=== PATIENT | male | born 1985 | race Caucasian/White ===

== ENCOUNTER 2018-06-03 11:46 | Observation (INO) | payer OTHER, BC ==
--- NOTE | 2018-06-03 12:54 | XR ---
EXAMINATION TYPE: XR chest 2V DATE OF EXAM: 06/03/2018 COMPARISON: Prior chest x-ray 06/03/2017 HISTORY: Chest pain TECHNIQUE: Frontal and lateral views of the chest are obtained. FINDINGS: There is no focal air space opacity, pleural effusion, or pneumothorax seen. The cardiac silhouette size is within normal limits. The osseous structures are intact. IMPRESSION: No acute cardiopulmonary process.
[2018-06-03 13:08] LABS: Basophils # (A) 0.1 k/uL (0-0.2); Basophils % (A) 1 %; Eosinophils # (A) 0.5 k/uL (0-0.7); Eosinophils % (A) 4 %; HGB 15.3 gm/dL (13.0-17.5); Lymphocytes # (A) 3.3 k/uL (1.0-4.8); Lymphocytes % (A) 30 %; MCH 30.2 pg (25.0-35.0); MCHC 33.9 g/dL (31.0-37.0); MCV 89.2 fL (80.0-100.0); Mean Platelet Volume 7.3; Monocytes # (A) 0.4 k/uL (0-1.0); Monocytes % (A) 3 %; Neutrophils # (A) 6.8 k/uL (1.3-7.7); Neutrophils % (A) 61 %; Platelet Count 277 k/uL (150-450); RBC 5.04 m/uL (4.30-5.90); RDW 13.1 % (11.5-15.5); WBC 11.1 k/uL (3.8-10.6)
[2018-06-03 13:16] LABS: ALT 107 U/L (21-72); AST 57 U/L (17-59); Albumin 4.7 g/dL (3.5-5.0); Alkaline Phosphatase 93 U/L (38-126); Anion Gap 10 mmol/L; Blood Urea Nitrogen 15 mg/dL (9-20); Calcium 9.5 mg/dL (8.4-10.2); Carbon Dioxide 26 mmol/L (22-30); Chloride 105 mmol/L (98-107); Glucose 133 mg/dL (74-99); Magnesium 1.9 mg/dL (1.6-2.3); Potassium 3.9 mmol/L (3.5-5.1); Sodium 141 mmol/L (137-145); Total Bilirubin 0.7 mg/dL (0.2-1.3); Total Protein 7.6 g/dL (6.3-8.2)
[2018-06-03 13:23] LABS: INR 0.9 (<1.2); Partial Thromboplastin Time 23.6 sec (22.0-30.0); Prothrombin Time 9.9 sec (9.0-12.0)
[2018-06-03 13:37] LABS: Creatine Kinase 212 U/L (55-170)
[2018-06-03 13:50] LABS: Creatine Kinase MB 0.6 ng/mL (0.0-2.4); Troponin I <0.012 ng/mL (0.000-0.034)
[2018-06-03] MEDS ORDERED: HEPARIN SODIUM,PORCINE 5,000 UNIT/ML 1 ML VIAL IV ONE (14:55)
[2018-06-03] MEDS ORDERED: HEPARIN SODIUM,PORCINE 5,000 UNIT/ML 1 ML VIAL IV PRN (14:55)
[2018-06-03] MEDS ORDERED: NITROGLYCERIN SL TABS 0.4 MG TAB SUBLINGUAL PRN (14:56)
[2018-06-03] MEDS ORDERED: HEPARIN SOD,PORK IN 0.45% NACL 25,000 UNIT in 0.45% NACL 1 250ML.BAG IV SCH (15:00)
--- NOTE | 2018-06-03 15:48 | ED ---
Chest Pain HPI - General Chief Complaint: Chest Pain Stated Complaint: Abnormal EKG Source: patient Mode of arrival: wheelchair Limitations: no limitations - History of Present Illness Initial Comments: The patient was seen and assessed by me please see the PA report for all the details patient was admitted for a cardiac workup due to chest pain. - Related Data Previous Rx's Medication Instructions Recorded Atorvastatin [Lipitor] 20 mg PO DAILY #30 tab 06/04/18 Fenofibrate [Lofibra] 160 mg PO DAILY #30 tab 06/04/18 Allergies Allergy/AdvReac Type Severity Reaction Status Date / Time No Known Allergies Allergy Verified 06/03/18 14:00 Review of Systems ROS Statement: Those systems with pertinent positive or pertinent negative responses have been documented in the HPI. ROS Other: All systems not noted in ROS Statement are negative. Past Medical History Past Medical History: No Reported History History of Any Multi-Drug Resistant Organisms: None Reported Past Surgical History: No Surgical Hx Reported Past Psychological History: No Psychological Hx Reported Smoking Status: Current every day smoker Past Alcohol Use History: Daily Past Drug Use History: None Reported - Past Family History Mother History Unknown: Yes Father Family Medical History: Liver Disease Additional Family Medical History / Comment(s): alcoholic General Exam Limitations: no limitations Course Vital Signs 06/03/18 06/03/18 06/03/18 12:03 16:30 17:32 Temperature 98.3 F Pulse Rate 89 78 77 Respiratory 18 16 14 Rate Blood Pressure 146/88 130/78 130/65 O2 Sat by Pulse 97 97 98 Oximetry 06/03/18 18:44 Temperature Pulse Rate 81 Respiratory 18 Rate Blood Pressure 123/77 O2 Sat by Pulse 96 Oximetry - Reevaluation(s) Reevaluation #1: 06/03/18 15:44 PA supervision: I proceeded [id number] evaluation the patient patient had several episodes of retrosternal chest pain sharp in nature that lasted initially for a period time and initially get somewhat short in duration. He's had several episodes in the emergency department since he arrived. This workup was negative he does have a family history of a grandfather who of a myocardial infarction at the age of 36 he is a smoker. We did discuss smoking cessation the entire discussion lasted 3.1 minutes. I did discuss the case with Dr. Wells. Patient will be admitted with cardiology consultation Chest Pain MDM - MDM Please see the PA report for all of the details. Disposition Clinical Impression: ACS (acute coronary syndrome), Chest pain Disposition: ADMITTED IP TO THIS HOSP Condition: Fair
--- NOTE | 2018-06-03 15:52 | ED ---
General Adult HPI - General Chief complaint: Chest Pain Stated complaint: Abnormal EKG Source: patient, RN notes reviewed, old records reviewed Mode of arrival: wheelchair Limitations: no limitations - History of Present Illness Initial comments: 32-year-old male patient with no pertinent past medical history presents to ED with 3 episodes of chest pain. Patient reports that this morning at approx 8 am while he was driving to work he experienced an episode of substernal chest pain that radiated to his right breast last approximate 8 minutes. Patient reports that he had to pull around the side of the road, extremes of dizziness, lightheadedness at the time. Patient states that episodes of chest pain he called off of work and presented at walk in clinic for evaluation. Patient reports that during presentation he had another episode of substernal chest pain radiated to his right breast. Patient describes the pain as stabbing sharp. Patient states that this lasted a shorter duration time, approximate 5 minutes. During evaluation at walk in clinic patient reports that they found some EKG changes and recommended to present to the ED. While in the ED triage room patient reports that he had a more minor chest pain of his substernal region arranges right breast again, also stabbing, lasted approximately 3 minutes. Patient denies any other symptoms. Patient denies shortness of breath , abdominal pain, nausea vomiting diarrhea, diaphoresis. Patient denies syncope. Patient has changes in vision. Patient states that he does smoke cigarettes and had a grandfather that of a HI at 36 years of age. Systemic: Pt denies fatigue, myalgia, fever/chills, rash. Pt denies weakness, night sweats, weight loss. Neuro: Pt denies headache, visual disturbances, syncope or pre-syncope. HEENT: Pt denies ocular discharge or irritation, otalgia, rhinorrhea, pharyngitis or notable lymphadenopathy. Cardiopulmonary: Pt denies SOB, dyspnea on exertion. Abdominal/GI: Pt denies abdominal pain, n/v/d. : Pt denies dysuria, burning w/ urination, frequency/urgency. Denies new onset urinary or bowel incontinence. MSK: Pt denies myalgia, loss of strength or function in extremities. Neuro: Pt denies new onset weakness, paresthesias. - Related Data Home Medications Medication Instructions Recorded Confirmed No Known Home Medications 06/03/18 06/03/18 Allergies Allergy/AdvReac Type Severity Reaction Status Date / Time No Known Allergies Allergy Verified 06/03/18 14:00 Review of Systems ROS Statement: Those systems with pertinent positive or pertinent negative responses have been documented in the HPI. ROS Other: All systems not noted in ROS Statement are negative. Past Medical History Past Medical History: No Reported History History of Any Multi-Drug Resistant Organisms: None Reported Past Surgical History: No Surgical Hx Reported Past Psychological History: No Psychological Hx Reported Smoking Status: Current every day smoker Past Alcohol Use History: Daily Past Drug Use History: None Reported - Past Family History Mother History Unknown: Yes Father Family Medical History: Liver Disease Additional Family Medical History / Comment(s): alcoholic General Exam - General Exam Comments Initial Comments: Constitutional: NAD, AOX3, Pt has pleasant affect. HEENT: NC/AT, trachea midline, neck supple, no lymphadenopathy. Posterior pharynx non erythematous, without exudates. External ears appear normal, without discharge. Mucous membranes moist. Eyes PERRLA, EOM intact. There is no scleral icterus. No pallor noted. Cardiopulmonary: RRR, no murmurs, rubs or gallops, no JVD noted. Lungs CTAB in anterior and posterior buitrago. No peripheral edema. Chest pain non reproducible on palpation. Abdominal exam: Abdomen soft and non-distended. Abdomen non-tender to palpation in all 4 quadrants. Bowel sounds active in LLQ. No hepatosplenomegaly. No ecchymosis Neuro: CN II-XII grossly intact. No nuchal rigidity. MSK: No posterior calf tenderness bilaterally, homans sign negative bilaterally. Posterior tibialis and radial pulse +2 bilaterally. Sensation intact in upper and lower extremities. Full active ROM in upper and lower extremities, 5/5 strength. Limitations: no limitations Course Vital Signs 06/03/18 06/03/18 06/03/18 12:03 16:30 17:32 Temperature 98.3 F Pulse Rate 89 78 77 Respiratory 18 16 14 Rate Blood Pressure 146/88 130/78 130/65 O2 Sat by Pulse 97 97 98 Oximetry 06/03/18 18:44 Temperature Pulse Rate 81 Respiratory 18 Rate Blood Pressure 123/77 O2 Sat by Pulse 96 Oximetry Medical Decision Making - Medical Decision Making 32-year-old male patient presents to ED with 3 episodes of substernal stabbing chest pain. Patient denies any pertinent past medical history. Vital signs stable. Physical exam did not display any acute pathology, chest pain reproducible upon palpation. EKG displayed inverted T waves in lead 2 before he 5 V6. Laboratory non-impressive, CBC, CMP. Coagulation studies within normal limits. Mg2+ wnl. Troponin negative. CK-MD wnl. CK slightly elevated at 212. Patient to be admitted to telemetry for continued evaluation, cardiac consult. Patient heparinized with low dose heparin. Patient diagnosed with unstable angina, started on aspirin, Nitropaste, serial tropes. Pt admitted to Dr. Wells, consulted Dr. Yepez. Pt discussed and seen by Dr. Rosales. - Lab Data Result diagrams: 06/03/18 12:38 06/03/18 12:38 Lab Results 06/03/18 06/03/18 06/03/18 Range/Units 12:38 12:38 12:38 WBC 11.1 H (3.8-10.6) k/uL RBC 5.04 (4.30-5.90) m/uL Hgb 15.3 (13.0-17.5) gm/dL Hct 45.0 (39.0-53.0) % MCV 89.2 (80.0-100.0) fL MCH 30.2 (25.0-35.0) pg MCHC 33.9 (31.0-37.0) g/dL RDW 13.1 (11.5-15.5) % Plt Count 277 (150-450) k/uL Neutrophils % 61 % Lymphocytes % 30 % Monocytes % 3 % Eosinophils % 4 % Basophils % 1 % Neutrophils # 6.8 (1.3-7.7) k/uL Lymphocytes # 3.3 (1.0-4.8) k/uL Monocytes # 0.4 (0-1.0) k/uL Eosinophils # 0.5 (0-0.7) k/uL Basophils # 0.1 (0-0.2) k/uL PT (9.0-12.0) sec INR (<1.2) APTT (22.0-30.0) sec Sodium 141 (137-145) mmol/L Potassium 3.9 (3.5-5.1) mmol/L Chloride 105 (98-107) mmol/L Carbon Dioxide 26 (22-30) mmol/L Anion Gap 10 mmol/L BUN 15 (9-20) mg/dL Creatinine 1.15 (0.66-1.25) mg/dL Est GFR (CKD-EPI)AfAm >90 (>60 ml/min/1.73 sqM) Est GFR (CKD-EPI)NonAf 86 (>60 ml/min/1.73 sqM) Glucose 133 H (74-99) mg/dL Calcium 9.5 (8.4-10.2) mg/dL Magnesium 1.9 (1.6-2.3) mg/dL Total Bilirubin 0.7 (0.2-1.3) mg/dL AST 57 (17-59) U/L ALT 107 H (21-72) U/L Alkaline Phosphatase 93 (38-126) U/L Total Creatine Kinase 212 H (55-170) U/L CK-MB (CK-2) 0.6 (0.0-2.4) ng/mL CK-MB (CK-2) Rel Index 0.3 Troponin I <0.012 (0.000-0.034) ng/mL Total Protein 7.6 (6.3-8.2) g/dL Albumin 4.7 (3.5-5.0) g/dL 06/03/18 Range/Units 12:38 WBC (3.8-10.6) k/uL RBC (4.30-5.90) m/uL Hgb (13.0-17.5) gm/dL Hct (39.0-53.0) % MCV (80.0-100.0) fL MCH (25.0-35.0) pg MCHC (31.0-37.0) g/dL RDW (11.5-15.5) % Plt Count (150-450) k/uL Neutrophils % % Lymphocytes % % Monocytes % % Eosinophils % % Basophils % % Neutrophils # (1.3-7.7) k/uL Lymphocytes # (1.0-4.8) k/uL Monocytes # (0-1.0) k/uL Eosinophils # (0-0.7) k/uL Basophils # (0-0.2) k/uL PT 9.9 (9.0-12.0) sec INR 0.9 (<1.2) APTT 23.6 (22.0-30.0) sec Sodium (137-145) mmol/L Potassium (3.5-5.1) mmol/L Chloride (98-107) mmol/L Carbon Dioxide (22-30) mmol/L Anion Gap mmol/L BUN (9-20) mg/dL Creatinine (0.66-1.25) mg/dL Est GFR (CKD-EPI)AfAm (>60 ml/min/1.73 sqM) Est GFR (CKD-EPI)NonAf (>60 ml/min/1.73 sqM) Glucose (74-99) mg/dL Calcium (8.4-10.2) mg/dL Magnesium (1.6-2.3) mg/dL Total Bilirubin (0.2-1.3) mg/dL AST (17-59) U/L ALT (21-72) U/L Alkaline Phosphatase (38-126) U/L Total Creatine Kinase (55-170) U/L CK-MB (CK-2) (0.0-2.4) ng/mL CK-MB (CK-2) Rel Index Troponin I (0.000-0.034) ng/mL Total Protein (6.3-8.2) g/dL Albumin (3.5-5.0) g/dL - EKG Data -: EKG Interpreted by Me (and dr rosales) EKG Comments: Ventricular rate 80, IL interval 166, QRS 108, QTC is QTC 360 since 417. Normal sinus rhythm. T wave abnormality. Inverted T waves noted on lead 2, V4 V5 and V6. Disposition Clinical Impression: ACS (acute coronary syndrome) Disposition: ADMITTED IP TO THIS HOSP Condition: Fair Is patient prescribed a controlled substance at d/c from ED?: No
[2018-06-03] MEDS: NITROGLYCERIN OINT 1 INCH/GM PACKET TOPICAL SCH ×2 (16:26→21:24)
--- NOTE | 2018-06-03 18:55 | P.HPIM ---
History of Present Illness 32-year-old pleasant the male without any significant past medical history except for smoking history came in with complaints of chest pressure which started today while she was driving lasted for about 10 minutes while he was driving pressure-like sensation along with some lightheadedness denied any diaphoresis denied any shortness of breath patient has to stop, while he started driving again it recurred again because of which the patient was advised to come to ER. Patient has family history of coronary artery disease in grandfather at age 37. Patient has some nonspecific ST-T wave changes on the EKG troponins are negative patient is admitted to rule out acute coronary syndromes and unstable angina. Chest pain is nonpleuritic not associated with food. Denied any cough chest x-ray did not show pneumonia. Review of Systems REVIEW OF SYSTEMS: CONSTITUTIONAL: No fever, no malaise, no fatigue. HEENT: No recent visual problems or hearing problems. Denied any sore throat. CARDIOVASCULAR: No orthopnea, PND, no palpitations, no syncope. PULMONARY: No shortness of breath, no cough, no hemoptysis. GASTROINTESTINAL: No diarrhea, no nausea, no vomiting, no abdominal pain. NEUROLOGICAL: No headaches, no weakness, no numbness. HEMATOLOGICAL: Denies any bleeding or petechiae. GENITOURINARY: Denies any burning micturition, frequency, or urgency. MUSCULOSKELETAL/RHEUMATOLOGICAL: Denies any joint pain, swelling, or any muscle pain. ENDOCRINE: Denies any polyuria or polydipsia. The rest of the 14-point review of systems is negative. Past Medical History Past Medical History: No Reported History History of Any Multi-Drug Resistant Organisms: None Reported Past Surgical History: No Surgical Hx Reported Past Psychological History: No Psychological Hx Reported Smoking Status: Current every day smoker Past Alcohol Use History: Daily Past Drug Use History: None Reported Medications and Allergies Home Medications Medication Instructions Recorded Confirmed Type No Known Home Medications 06/03/18 06/03/18 History Allergies Allergy/AdvReac Type Severity Reaction Status Date / Time No Known Allergies Allergy Verified 06/03/18 14:00 Physical Exam Vitals: Vital Signs Temp Pulse Resp BP Pulse Ox 06/03/18 18:44 81 18 123/77 96 06/03/18 17:32 77 14 130/65 98 06/03/18 16:30 78 16 130/78 97 06/03/18 12:03 98.3 F 89 18 146/88 97 Intake and Output 06/03/18 06/03/18 06/03/18 06:59 14:59 22:59 Other: Weight 92.533 kg PHYSICAL EXAMINATION: GENERAL: The patient is alert and oriented x3, not in any acute distress. Well developed, well nourished. HEENT: Pupils are round and equally reacting to light. EOMI. No scleral icterus. No conjunctival pallor. Normocephalic, atraumatic. No pharyngeal erythema. No thyromegaly. CARDIOVASCULAR: S1 and S2 present. No murmurs, rubs, or gallops. PULMONARY: Chest is clear to auscultation, no wheezing or crackles. ABDOMEN: Soft, nontender, nondistended, normoactive bowel sounds. No palpable organomegaly. MUSCULOSKELETAL: No joint swelling or deformity. EXTREMITIES: No cyanosis, clubbing, or pedal edema. NEUROLOGICAL: Gross neurological examination did not reveal any focal deficits. SKIN: No rashes. Results CBC & Chem 7: 06/03/18 12:38 06/03/18 12:38 Labs: Abnormal Lab Results - Last 24 Hours (Table) 06/03/18 06/03/18 06/03/18 Range/Units 12:38 12:38 12:38 WBC 11.1 H (3.8-10.6) k/uL Glucose 133 H (74-99) mg/dL ALT 107 H (21-72) U/L Total Creatine Kinase 212 H (55-170) U/L Assessment and Plan Plan: Chest pain we'll rule out acute coronary syndromes, unstable angina repeat 2 more sets of troponins and EKGs cardiology was consulted. -Nicotine abuse: Counseling was provided -Mildly elevated ALT etiology is not clear no other liver enzyme elevation patient denied any IV drug use we'll repeat ALT Still elevated will do ultrasound of the gallbladder and hepatitis panel.
[2018-06-03 19:30] LABS: Creatine Kinase 188 U/L (55-170)
[2018-06-03 19:42] LABS: Creatine Kinase MB 0.5 ng/mL (0.0-2.4); Troponin I <0.012 ng/mL (0.000-0.034)
[2018-06-04 00:12] LABS: Creatine Kinase 150 U/L (55-170)
[2018-06-04 00:25] LABS: Creatine Kinase MB 0.4 ng/mL (0.0-2.4); Troponin I <0.012 ng/mL (0.000-0.034)
[2018-06-04] MEDS: NITROGLYCERIN OINT 1 INCH/GM PACKET TOPICAL SCH ×2 (01:14→05:59)
[2018-06-04 07:01] LABS: ALT 95 U/L (21-72); AST 52 U/L (17-59); Albumin 3.9 g/dL (3.5-5.0); Alkaline Phosphatase 102 U/L (38-126); Anion Gap 6 mmol/L; Blood Urea Nitrogen 13 mg/dL (9-20); Carbon Dioxide 22 mmol/L (22-30); Chloride 110 mmol/L (98-107); Cholesterol 252 mg/dL (<200); Glucose 96 mg/dL (74-99); HDL Cholesterol 36 mg/dL (40-60); Potassium 4.5 mmol/L (3.5-5.1); Sodium 138 mmol/L (137-145); Total Bilirubin 0.6 mg/dL (0.2-1.3); Total Protein 6.5 g/dL (6.3-8.2)
[2018-06-04 07:16] LABS: Triglycerides 1279 mg/dL (<150)
[2018-06-04 07:44] VITALS: RESP 18
[2018-06-04 07:47] LABS: Basophils # (A) 0.1 k/uL (0-0.2); Basophils % (A) 1 %; Eosinophils # (A) 0.5 k/uL (0-0.7); Eosinophils % (A) 5 %; HCT 42.8 % (39.0-53.0); HGB 14.9 gm/dL (13.0-17.5); Lymphocytes # (A) 3.6 k/uL (1.0-4.8); Lymphocytes % (A) 32 %; MCH 31.7 pg (25.0-35.0); MCHC 34.8 g/dL (31.0-37.0); Monocytes # (A) 0.6 k/uL (0-1.0); Monocytes % (A) 5 %; Neutrophils # (A) 6.4 k/uL (1.3-7.7); Neutrophils % (A) 56 %; Platelet Count 258 k/uL (150-450); RDW 13.4 % (11.5-15.5); WBC 11.3 k/uL (3.8-10.6)
[2018-06-04] MEDS ORDERED: FENOFIBRATE 160 MG TAB PO SCH (09:00)
[2018-06-04] MEDS ORDERED: ASPIRIN 325 MG TAB PO SCH (09:00)
[2018-06-04] MEDS ORDERED: ATORVASTATIN 20 MG TAB PO SCH (09:00)
--- NOTE | 2018-06-04 11:25 | P.CRDCN ---
History of Present Illness History of present illness: This is a pleasant 32-year-old male past medical history significant for daily heavy alcohol use and chronic nicotine dependence. He denies history of coronary artery disease, hypertension, diabetes mellitus or dyslipidemia. 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 He states he started smoking cigarettes and he was 10 years old and smokes pack per day. He also drinks a pint of whiskey daily. We have been asked to see him in consultation for symptoms of chest discomfort yesterday while driving to work he experienced an extreme tightness in the chest in the mid sternal rgion wirh radiation to the right anterior chest wall without lasted for 10 minutes with associated dizziness and shortness of breath. 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 After subsiding he continued driving and the symptoms happened again. This time lasting for 6 minutes. Upon arrival to the emergency department he initially was chest pain-free however he had another episode sitting in the emergency department. He states he was not on the monitor and EKG was not obtained at that time. He is seen and examined resting comfortably in bed in no acute distress. He denies any further symptoms of chest discomfort, dizziness or shortness of breath. He denies associated palpitations, nausea, vomiting or diaphoresis with any of his episodes of chest discomfort. EKG reveals sinus mechanism with T-wave inversions noted in the inferior leads. There is no old EKG for comparison. Chest x-ray is negative for acute cardiopulmonary process. Laboratory data reviewed, WBC 11.3, hemoglobin 14.9, platelets 258, sodium 138, potassium 4.5, creatinine 0.84, magnesium 1.9, cardiac enzymes negative 3. He takes no daily cardiac medications. At the time of my exam: CONSTITUTIONAL: Denies fever. Denies chills. EYES: Denies blurred vision. Denies vision changes. Denies eye pain. EARS, NOSE, MOUTH & THROAT: Denies headache. Denies sore throat. Denies ear pain. CARDIOVASCULAR: Denies chest pain. Denies shortness of breath. Denies orthopnea. Denies PND. Denies palpitations. RESPIRATORY: Denies cough. GASTROINTESTINAL: Denies abdominal pain. Denies diarrhea. Denies constipation. Denies nausea. Denies vomiting. MUSCULOSKELETAL: Denies myalgias. INTEGUMENTARY: Denies pruitis. Denies rash. NEUROLOGIC: Denies numbness. Denies tingling. Denies weakness. PSYCHIATRIC: Denies anxiety. Denies depression. ENDOCRINE: Denies fatigue. Denies weight change. Denies polydipsia. Denies polyurina. GENITOURINARY: Denies burning, hematuria or urgency with micturation. HEMATOLOGIC: Denies history of anemia. Denies bleeding. Blood pressure 118/76 heart rate 61 afebrile maintaining oxygen saturation on room air GENERAL: This is a 32-year-old male in no apparent distress at the time of my examination. HEENT: Head is atraumatic, normocephalic. Pupils are equal, round. Sclerae anicteric. Conjunctivae are clear. Mucous membranes of the mouth are moist. Neck is supple. There is no jugular venous distention. No carotid bruit is heard. LUNGS: Clear to auscultation no wheezes, rales or rhonchi. No chest wall tenderness is noted on palpation or with deep breathing. HEART: Regular rate and rhythm without murmurs, rubs or gallops. S1 and S2 heard. ABDOMEN: Soft, nontender. Bowel sounds are heard. No organomegaly noted. EXTREMITIES: No evidence of peripheral edema and no calf tenderness noted. VASCULAR: Radial and dorsalis pedis pulses palpated, no evidence of clubbing. NEUROLOGIC: Patient is awake, alert and oriented x3. ASSESSMENT Chest pain, atypical for angina. An acute coronary event has been ruled out. Hypertriglyceridemia Dyslipidemia Daily heavy alcohol abuse Chronic nicotine dependence PLAN Acute coronary event has been ruled out. Obtain 2-D echocardiogram and Doppler study to assess cardiac structure and function. Lifestyle modifications discussed at length. The patient is interested in quitting drinking but thinks he may require some inpatient rehabilitation. Consult social work for option discussion. Smoking cessation highly recommended. Initiate the patient on fenofibrate and atorvastatin with the understanding that his lipid panel May greatly improved if he were to subside alcohol use. Check d-dimer. Perform stress echocardiogram to assess her chest is cardiac ischemia. If stress test is normal he is stable from a cardiac perspective. Thank you kindly for this consultation. Nurse Practitioner note has been reviewed, I agree with a documented findings and plan of care. Patient was seen and examined. Past Medical History Past Medical History: No Reported History Additional Past Medical History / Comment(s): pt denies any medical problems History of Any Multi-Drug Resistant Organisms: None Reported Past Surgical History: No Surgical Hx Reported Additional Past Surgical History / Comment(s): wisdom teeth extracted Past Anesthesia/Blood Transfusion Reactions: No Reported Reaction Additional Past Anesthesia/Blood Transfusion Reaction / Comment(s): "has never received any blood transfusions" Past Psychological History: No Psychological Hx Reported Smoking Status: Current every day smoker Past Alcohol Use History: Daily Past Drug Use History: None Reported - Past Family History Mother History Unknown: Yes Father Family Medical History: Liver Disease Additional Family Medical History / Comment(s): alcoholic Medications and Allergies Home Medications Medication Instructions Recorded Confirmed Type No Known Home Medications 06/03/18 06/03/18 History Allergies Allergy/AdvReac Type Severity Reaction Status Date / Time No Known Allergies Allergy Verified 06/03/18 14:00 Physical Exam Vitals: Vital Signs Temp Pulse Pulse Resp BP BP Pulse Ox 06/04/18 07:20 97.5 F L 61 18 118/76 98 06/04/18 04:00 56 L 16 06/04/18 03:52 98.1 F 56 L 16 126/66 98 06/04/18 00:00 70 16 06/03/18 23:41 97.7 F 70 16 123/74 96 06/03/18 20:00 70 16 06/03/18 19:49 97.5 F L 70 16 149/82 98 06/03/18 18:44 81 18 123/77 96 06/03/18 17:32 77 14 130/65 98 06/03/18 16:30 78 16 130/78 97 06/03/18 12:03 98.3 F 89 18 146/88 97 Intake and Output 06/03/18 06/04/18 06/04/18 22:59 06:59 14:59 Intake Total 77.755 Balance 77.755 Intake: Intake, IV Titration 77.755 Amount Heparin Sod,Pork in 0.45% 77.755 NaCl 25,000 unit In 0.45 % NaCl 1 250ml.bag @ 10.8 UNITS/KG/HR 9.99 mls/hr IV .Q24H [facility] Rx#: [id number] Other: Voiding Method Toilet Toilet # Voids 2 Weight 92.533 kg Results 06/04/18 06:24 06/04/18 06:24 Cardiac Enzymes 06/03/18 06/03/18 06/03/18 Range/Units 12:38 12:38 19:00 AST 57 (17-59) U/L CK-MB (CK-2) 0.6 0.5 (0.0-2.4) ng/mL Troponin I <0.012 <0.012 (0.000-0.034) ng/mL 06/03/18 06/04/18 Range/Units 23:20 06:24 AST 52 (17-59) U/L CK-MB (CK-2) 0.4 (0.0-2.4) ng/mL Troponin I <0.012 (0.000-0.034) ng/mL Coagulation 06/03/18 06/03/18 06/04/18 Range/Units 12:38 23:20 06:24 PT 9.9 (9.0-12.0) sec APTT 23.6 26.2 31.8 H (22.0-30.0) sec Lipids 06/04/18 Range/Units 06:24 Triglycerides 1279 H (<150) mg/dL Cholesterol 252 H (<200) mg/dL HDL Cholesterol 36 L (40-60) mg/dL CBC 06/03/18 06/04/18 Range/Units 12:38 06:24 WBC 11.1 H 11.3 H (3.8-10.6) k/uL RBC 5.04 4.70 (4.30-5.90) m/uL Hgb 15.3 14.9 (13.0-17.5) gm/dL Hct 45.0 42.8 (39.0-53.0) % Plt Count 277 258 (150-450) k/uL Comprehensive Metabolic Panel 06/03/18 06/04/18 Range/Units 12:38 06:24 Sodium 141 138 (137-145) mmol/L Potassium 3.9 4.5 (3.5-5.1) mmol/L Chloride 105 110 H (98-107) mmol/L Carbon Dioxide 26 22 (22-30) mmol/L BUN 15 13 (9-20) mg/dL Creatinine 1.15 0.84 (0.66-1.25) mg/dL Glucose 133 H 96 (74-99) mg/dL Calcium 9.5 9.0 (8.4-10.2) mg/dL AST 57 52 (17-59) U/L ALT 107 H 95 H (21-72) U/L Alkaline Phosphatase 93 102 (38-126) U/L Total Protein 7.6 6.5 (6.3-8.2) g/dL Albumin 4.7 3.9 (3.5-5.0) g/dL Current Medications Generic Name Dose Route Start Last Admin Trade Name Freq PRN Reason Stop Dose Admin Aspirin 325 mg 06/04/18 09:00 Aspirin PO DAILY [facility] Heparin Sodium (Porcine) 0 unit 06/03/18 14:55 Heparin IV PER PROTOCOL PRN Low PTT Protocol Heparin Sodium/Sodium Chloride 250 mls @ 9.99 mls/hr 06/03/18 15:00 06/04/18 00:09 25,000 unit/ Sodium Chloride IV 13.8 units/kg/hr .Q24H [facility] 12.76 mls/hr Titration Protocol 10.8 UNITS/KG/HR Nitroglycerin 1 inch 06/03/18 15:00 06/04/18 05:59 Nitro-Bid Oint TOPICAL Not Given Q6HR [facility] Nitroglycerin 0.4 mg 06/03/18 14:56 Nitrostat SUBLINGUAL Q5M PRN Chest Pain Intake and Output 06/03/18 06/04/18 06/04/18 22:59 06:59 14:59 Intake Total 77.755 Balance 77.755 Intake: Intake, IV Titration 77.755 Amount Heparin Sod,Pork in 0.45% 77.755 NaCl 25,000 unit In 0.45 % NaCl 1 250ml.bag @ 10.8 UNITS/KG/HR 9.99 mls/hr IV .Q24H [facility] Rx#: [id number] Other: Voiding Method Toilet Toilet # Voids 2 Weight 92.533 kg 06/04/18 06:24 06/04/18 06:24
[2018-06-04 12:04] VITALS: BP 124/76; PULSE 74; TEMP 97.6
--- NOTE | 2018-06-04 13:06 | P.DS ---
Providers Date of admission: 06/03/18 14:43 Attending physician: Loren Wells Consults: 06/03/18 14:56 Consult Physician Urgent Consulting Provider: Evan Yepez Consult Reason/Comments: unstable angina Do you want consulting provider notified?: Yes Primary care physician: Stated None Hospital Course: 32-year-old male came in with chest pain, stresses if that's negative patient will be discharged with probable cause of chest pain being anxiety. Patient is found to have elevated LDL and highly elevated triglycerides up to 1200 patient was started on fenofibrate and statin and patient will be discharged on these medications. Nutrition counseling will be provided. Stresses is negative patient will be discharged to follow Dr. Garcia as an outpatient. PHYSICAL EXAMINATION: GENERAL: The patient is alert and oriented x3, not in any acute distress. Well developed, well nourished. HEENT: Pupils are round and equally reacting to light. EOMI. No scleral icterus. No conjunctival pallor. Normocephalic, atraumatic. No pharyngeal erythema. No thyromegaly. CARDIOVASCULAR: S1 and S2 present. No murmurs, rubs, or gallops. PULMONARY: Chest is clear to auscultation, no wheezing or crackles. ABDOMEN: Soft, nontender, nondistended, normoactive bowel sounds. No palpable organomegaly. MUSCULOSKELETAL: No joint swelling or deformity. EXTREMITIES: No cyanosis, clubbing, or pedal edema. NEUROLOGICAL: Gross neurological examination did not reveal any focal deficits. SKIN: No rashes. Please refer to my HPI from yesterday for further details Patient Condition at Discharge: Fair Plan - Discharge Summary Discharge Rx Participant: No New Discharge Prescriptions: New Atorvastatin [Lipitor] 20 mg PO DAILY #30 tab Fenofibrate [Lofibra] 160 mg PO DAILY #30 tab Discharge Medication List Atorvastatin [Lipitor] 20 mg PO DAILY #30 tab 06/04/18 [Rx] Fenofibrate [Lofibra] 160 mg PO DAILY #30 tab 06/04/18 [Rx] Follow up Appointment(s)/Referral(s): Erika Garcia MD [REFERRING] - 1 Week None,Stated [Primary Care Provider] - 1-2 days Discharge Disposition: HOME SELF-CARE
--- NOTE | 2018-06-04 13:27 | ECHOS ---
STRESS ECHOCARDIOGRAM DATE OF SERVICE: 06/04/2018 INDICATIONS: Chest pain. MEDICATIONS: BASELINE HEART RATE: 55 BASELINE BLOOD PRESSURE: 120/66 MAXIMUM HEART RATE: 165 MAXIMUM BLOOD PRESSURE: 205/60 85% MPHR: 162 100% MPHR: 190 METS: 11.9 MAXIMUM STAGE REACHED: III TOTAL EXERCISE TIME: 10 minutes 56 seconds CLINICAL INFORMATION: Baseline EKG revealed normal sinus rhythm without significant ST-T changes. Patient walked for 10 minutes 56 seconds achieved a maximal heart rate of 165 beats per minute which is more than 85% of predicted maximal. He developed fatigue and shortness of breath. Resting heart rate was 55 beats per minute. Resting blood pressure was 120/66 and went up to 205/60. EKG was unremarkable for any ischemic changes. There was some artifact. No arrhythmia was noted. By EKG criteria, this is a negative stress test with good exercise capacity. Baseline echo images revealed normal wall motion and wall thickening of all segments. At peak exercise, there was good augmentation of wall motion wall thickening of all segments suggesting that there is no evidence of stress-induced ischemia on this study. IMPRESSION: 1. Good exercise capacity with a negative stress test by EKG criteria. 2. Normal stress echocardiogram. MMODL / IJN: [id number] /
[2018-06-04 14:07] VITALS: BMI 31.9
--- NOTE | 2018-06-05 09:12 | ECHOF ---
Referral Reason:cp ekg abn MEASUREMENTS -------- HEIGHT: 170.2 cm WEIGHT: 92.5 kg BP: 118/76 RVIDd: 2.9 cm (< 3.3) IVSd: 1.1 cm (0.6 - 1.1) LVIDd: 4.3 cm (3.9 - 5.3) LVPWd: 1.1 cm (0.6 - 1.1) IVSs: 1.5 cm LVIDs: 3.0 cm LVPWs: 1.5 cm LA Diam: 3.2 cm (2.7 - 3.8) LAESV Index (A-L): 16.98 ml/m Ao Diam: 2.9 cm (2.0 - 3.7) AV Cusp: 2.2 cm (1.5 - 2.6) MV EXCURSION: 20.347 mm (> 18.000) MV EF SLOPE: 144 mm/s (70 - 150) EPSS: 0.5 cm MV E Raul: 1.21 m/s MV DecT: 183 ms MV A Raul: 0.93 m/s MV E/A Ratio: 1.30 FINDINGS -------- Sinus rhythm. This was a technically good study. The left ventricular size is normal. There is borderline concentric left ventricular hypertrophy. Overall left ventricular systolic function is normal with, an EF between 60 - 65 %. The right ventricle is normal in size. Normal LA size by volume 22+/-6 ml/m2. The right atrium is normal in size. The aortic valve is trileaflet and appears structurally normal. There is trace mitral regurgitation. Trace tricuspid regurgitation present. There is no pulmonic regurgitation present. The aortic root size is normal. Normal inferior vena cava with normal inspiratory collapse consistent with estimated right atrial pre ssure of 5 mmHg. There is no pericardial effusion. CONCLUSIONS -------- 1. Sinus rhythm. 2. This was a technically good study. 3. The left ventricular size is normal. 4. There is borderline concentric left ventricular hypertrophy. 5. Overall left ventricular systolic function is normal with, an EF between 60 - 65 %. 6. The right ventricle is normal in size. 7. Normal LA size by volume 22+/-6 ml/m2. 8. The right atrium is normal in size. 9. The aortic valve is trileaflet and appears structurally normal. 10. There is trace mitral regurgitation. 11. Trace tricuspid regurgitation present. 12. There is no pulmonic regurgitation present. 13. The aortic root size is normal. 14. Normal inferior vena cava with normal inspiratory collapse consistent with estimated right atrial pressure of 5 mmHg. 15. There is no pericardial effusion. VOCATIONAL NURSING INSTRUCTOR: Mirna Hillman RDCS
== END 2018-06-04 14:13 | disposition home or self-care (01) ==
LOC: EC 11:46 → 1SOBS 14:43
PROVIDERS: ADMIT Internal Medicine; ATTEND Internal Medicine
DX: R07.2 Precordial pain (principal); R94.31 Abnormal electrocardiogram [ECG] [EKG]; F41.9 Anxiety disorder, unspecified; E78.1 Pure hyperglyceridemia; R42 Dizziness and giddiness; R74.0 Nonspecific elevation of levels of transaminase and lactic acid dehydrogenase [LDH]; F17.210 Nicotine dependence, cigarettes, uncomplicated; E78.5 Hyperlipidemia, unspecified; F10.10 Alcohol abuse, uncomplicated; Z82.49 Family history of ischemic heart disease and other diseases of the circulatory system; Z83.49 Family history of other endocrine, nutritional and metabolic diseases
CPT/HCPCS: 96366 ×3; 96376; 96365; 99285; 36415; 93005; 93306; 93351; 85379; 80061; 80053 ×2; 82550; 82553; 83735; 84484; 85025 ×2; 85610; 85730 ×2; 71046; G0378 ×2; J1644 ×2